=== PATIENT | male | born 1985 | race Hispanic/Latino ===

== ENCOUNTER 2020-07-03 01:27 | Emergency (ER) | payer OTHER ==
[2020-07-03] MEDS ORDERED: Ketorolac Tromethamine 30 MG/ML VIAL ONE (01:45)
[2020-07-03 02:00] LABS: Bilirubin Negative (Negative); Blood, Urine Moderate (Negative); Clarity Clear (Clear); Glucose, Urine (Dipstick) Negative (Negative); Ketone, Urine Trace mg/dL (Negative); Leukocyte Negative (Negative); Nitrite Negative (Negative); Protein, Urine (Dipstick) 30 mg/dL (Neg-Trace); Urobilinogen 0.2 mg/dL (Less than 2)
[2020-07-03 02:03] LABS: #Basophils 0.2 thou/uL (0.0-0.2); #Eosinphils 0.1 thou/uL (0.0-0.7); #Lymphocytes 2.3 thou/uL (1.20-3.40); #Monocytes 0.8 thou/uL (0.11-0.59); #Neutrophils 7.8 thou/uL (1.40-6.50); %Basophils 1.7 % (0.0-1.0); %Eosinophils 1.2 % (0.0-10.0); %Lymphocytes 20.3 % (21.0-51.0); %Neutrophils 69.7 % (42.0-75.0); Hemoglobin 16.3 g/dL (14.0-18.0); Mean Corpuscular HGB CONC 32.7 g/dL (32.0-36.0); Mean Corpuscular Hemoglobin 30.8 pg (27.0-31.0); Mean Corpuscular Volume 94.1 fL (78.0-98.0); Mean Platelet Volume 9.7 fL (7.4-10.4); Platelet Count 274 thou/uL (130-400); Red Blood Cell (RBC) Count 5.31 mill/uL (4.70-6.10); White Blood Cell (WBC) Count 11.1 thou/uL (4.8-10.8)
[2020-07-03 02:09] LABS: Specific Gravity, Urine 1.027 (1.002-1.036)
[2020-07-03 02:14] LABS: Bacteria/HPF 1+ HPF (None Seen); Squamous Epithelial 0-3 HPF (0-3); WBC/HPF 0-3 HPF (0-3)
[2020-07-03 02:15] LABS: Calcium Oxalate Crystals 1+ HPF (None Seen)
[2020-07-03 02:17] LABS: ALT (SGPT) 74 U/L (8-55); AST (SGOT) 44 U/L (5-34); Albumin 4.5 g/dL (3.5-5.0); Alkaline Phosphatase 108 U/L (40-110); Anion Gap 15 mmol/L (10-20); BUN (Urea Nitrogen) 11 mg/dL (8.9-20.6); Bilirubin, Total 0.5 mg/dL (0.2-1.2); Calc. Creatinine Clearance 0 mL/min (70-130); Calcium 9.1 mg/dL (7.8-10.44); Carbon Dioxide 23 mmol/L (22-29); Chloride 105 mmol/L (98-107); Estimated GFR-MDRD 73; Globulin 3.1 g/dL (2.4-3.5); Glucose 125 mg/dL (70-105); Potassium 3.3 mmol/L (3.5-5.1); Protein, Total 7.6 g/dL (6.0-8.3); Sodium 140 mmol/L (136-145)
[2020-07-03] MEDS ORDERED: Tamsulosin HCl 0.4 MG CAP PO SCH (04:00)
--- NOTE | 2020-07-03 09:15 | CT ---
PRELIMINARY REPORT/[facility]/EMERGENCY AFTER HOURS PROCEDURE: EXAM: CT Abdomen and Pelvis Without Intravenous Contrast CLINICAL HISTORY: LT FLANK PAIN, ER PT, NO PRIOR, NO HX OF KIDNEY STONES TECHNIQUE: Axial computed tomography images of the abdomen and pelvis without intravenous contrast. CONTRAST: None. COMPARISON: None provided. FINDINGS: LUNG BASES: No basilar airspace consolidation or pleural effusion. LIVER: Hepatic steatosis. GALLBLADDER AND BILE DUCTS: Unremarkable. No calcified stone. No ductal dilation. PANCREAS: Unremarkable. SPLEEN: Unremarkable. ADRENAL GLANDS: Unremarkable. KIDNEYS, URETERS, AND BLADDER: The left kidney is enlarged and edematous with an obstructive 3 mm ure terolith at the left ureterovesicular junction causing mild proximal hydroureteronephrosis. A puncta te nonobstructive nephrolith is seen within the interpole of the right kidney. The bladder is decomp ressed. STOMACH AND BOWEL: No obstruction. No wall thickening. No CT evidence of colitis or acute diverticuli tis. APPENDIX: No CT evidence for appendicitis. PERITONEUM: No free fluid. No free air. LYMPH NODES: No lymphadenopathy. REPRODUCTIVE: Unremarkable as visualized. VASCULATURE: No aortic aneurysm. ABDOMINAL WALL AND SOFT TISSUES: Unremarkable. BONES: No fracture or suspicious osseous abnormality. IMPRESSION: 1. Obstructive 3 mm ureterolith at the left ureterovesicular junction. Additionally, there is a pun ctate nonobstructive nephrolith within the interpole of the right kidney. 2. Additional findings as described above. ELECTRONICALLY SIGNED BY: Claudio Blair MD Jul 03, 2020 2:49:49 AM LABORATORY SUPERVISOR FINAL REPORT CT ABDOMEN AND PELVIS WITHOUT CONTRAST: DATE: 07/03/2020. FINDINGS: Spiral CT of the abdomen and pelvis was done for evaluation of left lower quadrant pain. There is a 3 mm calculus that is either at the left UVJ or it has just entered the urinary bladder. This has caused mild left hydronephrosis. In addition, there are at least 2 punctate nonobstructing calculi remaining in the left kidney and at least 1 in the right kidney. The remainder of the examination is unremarkable. The lung bases are clear. The liver, spleen, panc reas, adrenal glands, gallbladder, and abdominal aorta were unremarkable in appearance. There is no obstruction of bowel, bowel wall thickening, or inflammatory change around bowel. The appendix appea rs normal. No free air or free fluid is present. CT of the pelvis shows no pelvic masses, inflammatory changes, or fluid collections. IMPRESSION: 1. A 3 mm calculus either within the urinary bladder or literally at the left ureterovesical junctio n that has resulted in mild left hydronephrosis. 2. Tiny nonobstructing calculi in each kidney. Report in agreement with preliminary reading by [facility]. POS: HOME
== END 2020-07-03 04:00 | disposition home or self-care (01) ==
LOC: BURERS 01:27
DX: N13.2 Hydronephrosis with renal and ureteral calculous obstruction (principal); F17.290 Nicotine dependence, other tobacco product, uncomplicated
CPT/HCPCS: 74176; 80053; 81003; 81015; 85025; 96374; J1885